=== PATIENT | female | born 1955 | race Caucasian/White ===

== ENCOUNTER 2019-04-13 17:08 | Inpatient (IN) ==
[2019-04-13] MEDS ORDERED: Ringers Solution, Lactated 1,000 ML ONE ×2 (19:38→23:31)
[2019-04-13] MEDS ORDERED: OXYCODONE Oral CONC 10 MG/0.5 ML ORAL.SYG SL STA (19:44)
[2019-04-13] MEDS ORDERED: *HR* Promethazine 25 MG/ML VIAL IVP PRN (19:52)
[2019-04-13] MEDS ORDERED: *HR* Labetalol 20 MG/4 ML SYRINGE IVP PRN (19:52)
[2019-04-13] MEDS ORDERED: Ondansetron 4 MG/2 ML VIAL IVP ONE (19:52)
[2019-04-13] MEDS ORDERED: *HR* OxyCODONE Immed Rel 5 MG TABLET PO PRN (19:52)
--- NOTE | 2019-04-13 19:53 | Anesthesia Evaluation PreOp ---
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: Denies Any Significant HX, Other (Rectal prolapse) Other Medical History: Denies Any Significant HX, Other (Obese) Anesthesia History: No Prior Anesthetic Complications, Past Anesthesia (GB, Colonoscopy x 3) : No Alcohol Use: none Drug use: none Medications and Allergies Allergy/AdvReac Type Severity Reaction Status Date / Time No Known Allergies Allergy Verified 04/13/19 19:28 - Meds/Allergy Pre-op Review Medications Reviewed: Yes Allergies Reviewed: Yes Beta Blockers on Current Med List: No Anesthesia Exam O2 Sat Height 1.63 m Weight 82.663 kg O2 Sat by Pulse Oximetry 98 Vital Signs Temp Pulse Resp BP Pulse Ox 98.1 F 90 15 193/80 98 04/13/19 19:10 04/13/19 19:10 04/13/19 19:10 04/13/19 19:10 04/13/19 19:10 NPO (# of Hours): > 8 hrs Pain Scale: 0 Pain Scale Used: Numeric (1 - 10) - HEENT Pupil (Motor): Pupils equal, EOMI Mallampati: I Teeth: Normal Oral Opening: Greater than 3 - TELEPHONE OPERATOR CHIEF LOC: Oriented TELEPHONE OPERATOR CHIEF Motor: Normal RUE, Normal LUE, Normal RLE, Normal LLE, Normal Face TELEPHONE OPERATOR CHIEF Sensory: Normal: RUE, LUE, RLE, LLE, Face - Cardiac Rhythm: Regular Murmur: None JVD: No Carotid Bruit: No - Pulmonary Breath Sounds: bilateral Clear Respiratory Effort: Symmetrical Anesthesia Assess/Plan ASA Score: 2, E Level of consciousness: Cooperative Anesthetic Plan: General Autologous Blood: Yes Monitoring Plan: A-Line
--- NOTE | 2019-04-13 19:53 | Acute Care Surgery H&P ---
Date of Encounter: 04/13/19 Time of Encounter: 19:51 Assessment and Plan (1) Rectal prolapse Current Visit: Yes Status: Acute The assessment and plan as outlined above was discussed with the patient and/or family members who expressed understanding and agreement. All questions were answered. I explained to the patient and family member that due to the degree of the rectal prolapse and her pain we definitely need to proceed with exploration and low anterior resection. It is highly probable that I will need to create a colostomy do to the acute setting and the fact that she has unprepped bowel. Risk and benefits discussed with the patient and family member and they agree with the above-mentioned plan. History of Present Illness Chief complaint: Rectal prolapse HPI: Ms. BALBUENA is a 64 year old female with no significant past medical history who states that today while trying to have a bowel movement she felt a pop and had severe pain with evidence of prolapse. She states that she is had previous history of a rectal prolapse in March of last year but not to this extent. She does not have any history diarrhea but admits to constipation. She takes MiraLAX and Colace regularly. She denies any rectal bleeding and because of the severe perianal pain and protrusion from the anal area she presented himself to [facility] and was subsequently transferred to [facility] for evaluation. Past Med Surg Social Fam HX - Past Surgical History Surgical History: cholecystectomy Medications and Allergies Allergy/AdvReac Type Severity Reaction Status Date / Time No Known Allergies Allergy Verified 04/13/19 19:28 Review of Systems All systems PM: reviewed and no additional remarkable complaints except as stated All systems PM: The remainder of the systems were reviewed and are negative General Surgery Exam Initial Vital Signs Temp Pulse Resp BP Pulse Ox 98.1 F 90 15 193/80 98 04/13/19 19:10 04/13/19 19:10 04/13/19 19:10 04/13/19 19:10 04/13/19 19:10 - General physical appearance moderate distress - Eyes PERRL, normal ocular movement - Respiratory normal expansion, normal respiratory effort, clear to auscultation - Cardiovascular Cardiovascular exam: Present: RRR, no murmurs/rubs/gallops - Abdomen Abdomen general surgery: Present: bowel sounds present, soft, tender (Tenderness noted in the lower abdominal region) - Rectum Rectum: Present: other (Rectal prolapse with maroon dusky appearing rectum extending for length of approximately 15-20 cm from the anus. Edematous.) - Neurologic Present: CN 2-12 grossly intact - Musculoskeletal Present: other (no clubbing cyanosis, or edema) - Psychiatric Psychiatric general surgery: Present: A&Ox3, appropriate, oriented to person, oriented to place, oriented to time Results - Labs All other labs normal.
[2019-04-13] MEDS ORDERED: *HR* FentaNYL (PF) 100 MCG/2 ML VIAL ONE (19:55)
[2019-04-13] MEDS ORDERED: *HR* Propofol 200 MG/20 ML VIAL IVP ONE (19:55)
[2019-04-13] MEDS ORDERED: Ondansetron 4 MG/2 ML VIAL ONE (19:59)
[2019-04-13] MEDS ORDERED: *HR* Rocuronium Bromide 50 MG/5 ML VIAL ONE (19:59)
[2019-04-13] MEDS ORDERED: *HR* Succinylcholine 200 MG/10 ML VIAL IVP ONE (19:59)
[2019-04-13] MEDS ORDERED: Lidocaine -MPF 2% 2 ML VIAL ONE (19:59)
[2019-04-13] MEDS ORDERED: Dexamethasone 4 MG/ML VIAL ONE (19:59)
[2019-04-13] MEDS ORDERED: CefOXitin 1,000 MG VIAL ONE (20:16)
[2019-04-13] MEDS ORDERED: CefOXitin 2,000 MG VIAL ONE (21:06)
[2019-04-13] MEDS ORDERED: Ketorolac 30 MG/ML VIAL ONE (22:22)
--- NOTE | 2019-04-13 22:58 | Operative Note ---
Date of procedure: 04/13/19 Pre-op diagnosis: Rectal prolapse Post-op diagnosis: same Procedure: 1. Exploratory celiotomy. 2. Low anterior resection with colostomy. Anesthesia: STEPHANIEA Surgeon: Felipe Vega Was there an personalized living assistant present: No First Line Production Supervisor Other: CHARLEE Peña Estimated blood loss (cc): 45 Specimen: sigmoid colon Condition: stable Disposition: PACU Procedure in Detail: Date of surgery: 04/13/19 After properly identifying the patient, the patient was brought to the operating room and placed in the supine position. After proper IV sedation was achieved followed by general endotracheal intubation, the legs were placed in a high lithotomy position and the anus was examined. A timeout was performed noting the patient's name and type of procedure to be performed. The mucosa of the prolapsed rectum appeared to be considerably edematous and hyperemic and in some areas ecchymosis and ischemia were present. The prolapsed portion extended for length of approximately greater than 25 cm. An attempt at reduction of this prolapse was tried without success. Given this large prolapse the decision was made to go ahead and proceed with a exploratory celiotomy. The patient's legs were placed in a low lithotomy position and the abdomen was prepped and draped in a normal sterile fashion. A 15 blade scalpel was used to make a an incision just above the level of the umbilicus extending along the midline inferiorly towards the pubic symphysis. Bovie cauterization was used to dissect the subcutaneous tissue and abdominal fascia until the abdomen was entered. A Bookwalter was brought onto the operative field to retract the abdominal wall laterally. The small bowel was retracted superiorly to allow for identification of the sigmoid colon. The sigmoid colon did appear to be redundant and grasping of the sigmoid colon and gentle traction allowed for eventual slow reduction of the rectal prolapse. The length of the reduction was greater than 25 cm, showing that the patient had an extremely redundant portion of the sigmoid colon with a lot of edema surrounding the area of the sigmoid colon that was prolapsed. The decision was made to go ahead and perform a sigmoid resection by first scoring the peritoneum to the right left of the sigmoid colon and using a handheld LigaSure to dissect between the mesentery until the presacral prominence could be identified. The presacral space was essentially without any type of adhesion and abundant edema which was suctioned. The sidewall down to the presacral space into the pelvis was dissected with Bovie cauterization. The peritoneum was then scored anteriorly overlying the position of the rectum. A contour stapler was then used to transect across the thickened portion of the rectum. Visualization showed that the staple line was not completely intact; i.e., ther was a failure of the stapling device. The open lumen of the rectal stump was grasped with nontraumatic grasper and the minor spillage of stool contents was immediately suctioned. The rectal mucosa was then approximated with Allis clamps and a contour stapler was once again applied across this area to complete the staple line which was identified and noted. Bovie cauterization and usage of a handheld LigaSure was then used to dissect across the mesentery up towards the descending colon. The portion of the descending colon as it traversed through the proximal portion of the sigmoid colon was further identified. This portion of the bowel was dissected off the lateral sidewall and transected with a SARAH stapler. The intervening mesentery was then transected with a handheld LigaSure and the segment of the colon was then submitted to pathology. The pelvis was copiously irrigated with normal saline solution containing Mefoxin. The rectal stump staple line was tagged with a 2-0 Prolene suture and the decision was then made to examined the abdominal wall for eventual creation of his colostomy. The left upper quadrant along the anterior clavicular line the epidermis was grasped with an Allis clamp and transected horizontally with a 10 blade scalpel. Bovie cauterization was used to dissected the subcutaneous to tissue to the rectus fascia was encountered. The tear sheath was scored with Bovie cauterization and the rectus abdominous muscle was split with a Brittany clamp until the posterior sheath was encountered and incised. The descending colonic stump was then extruded through this opening and tagged with a [place]. The decision was then made to close the midline incision by first placing Seprafilm within the abdomen and closing the fascia with a running #1 looped PDS suture 2. The subcutaneous tissue was reapproximated with a combination of oh and #1 Vicryl sutures and the epidermal and dermal layers were reapproximated with davy. The colostomy was then matured by transection across the staple line with Bovie cauterization and maturation with interrupted 3-0 Vicryl sutures. Kamaljit sponge, and instrument counts were correct 2 and the midline incision was covered with 4 x 4 gauze while the colostomy was covered with a colostomy appliance. The patient was aroused from IV sedation, extubated in the operating room without complication, and transported to the recovery room in stable condition.
[2019-04-13] MEDS: *HR* HYDROmorphone (PF) 1 MG/ML SYRINGE IVP PRN ×2 (23:33→23:47)
--- NOTE | 2019-04-14 00:01 | Anesthesia Evaluation Post Op ---
Date of Encounter: 04/14/19 Time of Encounter: 00:00 - Vital Signs Vital Signs: Vital Signs/O2 Sat, Most Current Temp Pulse Resp BP Pulse Ox 98.1 F 102 16 160/75 94 04/13/19 23:55 04/13/19 23:55 04/13/19 23:55 04/13/19 23:55 04/13/19 23:55 - Lungs Lungs: Clear Ascult./Percussion - Airway Airway: Non-obstructed - Cardiovascular Regular Rate - Mental Status Mental Status: Alert & Oriented, Answers Appropriately - Pain Pain Scale: 5 Pain Scale used: Numeric (1 - 10) - Nausea Vomiting Nausea Vomiting: Not Present - Hydration Hydration: Ice chips, Rios catheter - Discharge PostOp Status: Transfer Patient to floor
[2019-04-14] MEDS ORDERED: Naloxone 0.4 MG/ML INJ IVP PRN (00:08)
[2019-04-14] MEDS: Acetaminophen IV 1,000 MG/100 ML INFUS..BTL IVPB SCH ×5 (01:08→23:55)
[2019-04-14] MEDS: 0.9 % Sodium Chloride 1,000 ML IVC SCH ×3 (01:09→21:45)
[2019-04-14] MEDS: Ketorolac 30 MG/ML VIAL IVP SCH ×5 (01:09→23:55)
[2019-04-14 01:18] LABS: Basophils % 0.2 %; Hemoglobin 12.6 g/dL (11.5-15.4); Immature Granulocytes % 0.5 % (0-4); Lymphocytes # 0.8 K/mcL (0.6-4.6); Lymphocytes % 4.5 %; Mean Corpuscular HGB Conc 32.3 g/dL (31.6-35.5); Mean Corpuscular Hemoglobin 30.5 pg (28.0-33.3); Mean Corpuscular Volume 94.4 fL (83.0-100.0); Mean Platelet Volume 9.8 fL (9.4-12.4); Monocytes # 0.6 K/mcL (0.0-1.3); Monocytes % 3.3 %; Neutrophils # 15.6 K/mcL (1.6-8.9); Platelet Count 273 K/mcL (140-400); Red Blood Count 4.13 M/mcL (3.82-4.97); Red Cell Distribution Width 12.7 % (11.5-14.5); Segmented Neutrophils % 91.5 %
[2019-04-14 01:39] LABS: BUN/Creatinine Ratio 24 (6-26); Blood Urea Nitrogen 19 mg/dL (8-23); Calcium 7.9 mg/dL (8.6-10.3); Carbon Dioxide 21 mEq/L (23-29); Chloride 107 mEq/L (98-107); Glucose 186 mg/dL (70-105); Osmolality,Calculated 291 (280-300); Sodium 137 mEq/L (136-145); eGFR For Non-African Americans > 60 (> 60)
[2019-04-14] MEDS: cefOXitin 1,000 MG in Water for inj. (sterile) 20 ML 10 ML IVP SCH ×3 (04:34→19:48)
[2019-04-14] MEDS: Pantoprazole 40 MG VIAL IVP SCH (05:52)
--- NOTE | 2019-04-14 11:01 | AcuteCareSurgery Progress Note ---
<Kym Saleh N - Last Filed: 04/14/19 13:57> Date of Encounter: 04/14/19 Time of Encounter: 10:59 - Assessment and Plan (1) Rectal prolapse Current Visit: Yes Status: Acute 64-year-old female admitted on hospital for rectal prolapse extending 15-20 cm from the anus. She is POD #1 from exploratory celiotomy and low anterior resection with colostomy. -Patient reports improvement in her abdominal pain -Surgical site without erythema or discharge -Colostomy in place, stoma is pink and there is condensation within the bag. No gas or output noted. -Plan to remove hannon tomorrow -Continue pain management Subjective Narrative: Patient seen and examined at bedside this morning with family member present. Patient reports improvement in her pain. Her colostomy is in place, stoma is pink and there is condensation in the bag. She does have leukocytosis, but her vitals are stable. Objective Vital Signs - Last 8 Hours Temp Pulse Resp BP Pulse Ox 04/14/19 10:30 98.6 F 79 14 143/77 97 04/14/19 10:21 97 04/14/19 04:31 98.3 F 82 14 136/74 98 04/14/19 03:08 98.5 F 80 16 116/71 98 Intake and Output 04/13/19 04/14/19 04/14/19 23:59 07:59 15:59 Intake Total 370 / 1074 704 / 1074 Output Total 445 / 445 0 / 600 600 / 600 Balance -445 / -445 370 / 474 104 / 474 Intake: IV Fluids 310 / 1014 704 / 1014 Lactated Ringers 1,000 ML @ 0 100 / 100 mls/hr .ROUTE .STK-MED ONE Rx#: [id number] 0.9 % Sodium Chloride 1,000 ML 704 / 704 @ 100 mls/hr IVC .Q10H [facility] Rx#: [id number] Mefoxin 1,000 MG In Water for inj. (sterile) 10 ML @ 300 mls/ hr IVP Q8H [facility] Rx#:[id number] Ofirmev 1,000 mg/100 ml 1,000 200 / 200 mg In 100 ml @ 400 mls/hr IVPB Q6HR [facility] Rx#:[id number] Oral 60 / 60 0 / 60 Output: Estimated Blood Loss 45 / 45 Urine Amount (Catheter) 400 / 400 Catheter 0 / 600 600 / 600 Other: # Bowel Movements 0 Weight 82.663 kg Blood Glucose* 125 - General physical appearance well developed, well nourished - Eyes PERRL, normal ocular movement - ENT normal pinna, normal nares - Neck Neck exam: trachea midline, no venous distension - Respiratory normal expansion, normal respiratory effort - Cardiovascular Cardiovascular exam: Present: RRR - Abdomen Additional Comments: Appropriate postsurgical tenderness. There is a midline surgical incision without surrounding erythema or discharge. Her colostomy is in place, stoma is pink and there is condensation in the bag. - Incision Incision: Present: clean and dry, approximated - Labs 04/14/19 00:41 04/14/19 00:41 Diabetes panel 04/14/19 Range/Units 00:41 Sodium 137 (136-145) mEq/L Potassium 4.0 (3.5-5.1) mEq/L Chloride 107 (98-107) mEq/L Carbon Dioxide 21 L (23-29) mEq/L BUN 19 (8-23) mg/dL Creatinine 0.78 (0.60-1.20) mg/dL Glucose 186 H (70-105) mg/dL Calcium 7.9 L (8.6-10.3) mg/dL Calcium panel 04/14/19 Range/Units 00:41 Calcium 7.9 L (8.6-10.3) mg/dL Pituitary panel 04/14/19 Range/Units 00:41 Sodium 137 (136-145) mEq/L Potassium 4.0 (3.5-5.1) mEq/L Chloride 107 (98-107) mEq/L Carbon Dioxide 21 L (23-29) mEq/L BUN 19 (8-23) mg/dL Creatinine 0.78 (0.60-1.20) mg/dL Glucose 186 H (70-105) mg/dL Calcium 7.9 L (8.6-10.3) mg/dL Adrenal panel 04/14/19 Range/Units 00:41 Sodium 137 (136-145) mEq/L Potassium 4.0 (3.5-5.1) mEq/L Chloride 107 (98-107) mEq/L Carbon Dioxide 21 L (23-29) mEq/L BUN 19 (8-23) mg/dL Creatinine 0.78 (0.60-1.20) mg/dL Glucose 186 H (70-105) mg/dL Calcium 7.9 L (8.6-10.3) mg/dL Consult Discharge Plan - Plan Referrals: NONE,PCP [Primary Care Provider] - <GaryFelipe Nicole - Last Filed: 04/14/19 18:15> Date of Encounter: 04/14/19 - Assessment and Plan (1) Rectal prolapse Current Visit: Yes Status: Acute Objective Vital Signs - Last 8 Hours Temp Pulse Resp BP Pulse Ox 04/14/19 14:40 98.2 F 73 14 128/73 96 04/14/19 10:30 98.6 F 79 14 143/77 97 04/14/19 10:21 97 Intake and Output 04/14/19 04/14/19 04/14/19 07:59 15:59 23:59 Intake Total 370 / 1680 1140 / 1680 170 / 1680 Output Total 0 / 900 900 / 900 Balance 370 / 780 240 / 780 170 / 780 Intake: IV Fluids 310 / 1520 1110 / 1520 100 / 1520 Lactated Ringers 1,000 ML @ 0 100 / 100 mls/hr .ROUTE .STK-MED ONE Rx#: [id number] 0.9 % Sodium Chloride 1,000 ML 1000 / 1000 @ 100 mls/hr IVC .Q10H [facility] Rx#: [id number] Mefoxin 1,000 MG In Water for inj. (sterile) 10 ML @ 300 mls/ hr IVP Q8H [facility] Rx#:[id number] Ofirmev 1,000 mg/100 ml 1,000 200 / 400 100 / 400 100 / 400 mg In 100 ml @ 400 mls/hr IVPB Q6HR [facility] Rx#:[id number] Oral 60 / 160 30 / 160 70 / 160 Output: Stool 0 / 0 Catheter 0 / 900 900 / 900 Other: Meal 1/4 cup ice chips pop cycle # Bowel Movements 0 Blood Glucose* 125 102 135 - Labs 04/14/19 00:41 04/14/19 00:41 Diabetes panel 04/14/19 Range/Units 00:41 Sodium 137 (136-145) mEq/L Potassium 4.0 (3.5-5.1) mEq/L Chloride 107 (98-107) mEq/L Carbon Dioxide 21 L (23-29) mEq/L BUN 19 (8-23) mg/dL Creatinine 0.78 (0.60-1.20) mg/dL Glucose 186 H (70-105) mg/dL Calcium 7.9 L (8.6-10.3) mg/dL Calcium panel 04/14/19 Range/Units 00:41 Calcium 7.9 L (8.6-10.3) mg/dL Pituitary panel 04/14/19 Range/Units 00:41 Sodium 137 (136-145) mEq/L Potassium 4.0 (3.5-5.1) mEq/L Chloride 107 (98-107) mEq/L Carbon Dioxide 21 L (23-29) mEq/L BUN 19 (8-23) mg/dL Creatinine 0.78 (0.60-1.20) mg/dL Glucose 186 H (70-105) mg/dL Calcium 7.9 L (8.6-10.3) mg/dL Adrenal panel 04/14/19 Range/Units 00:41 Sodium 137 (136-145) mEq/L Potassium 4.0 (3.5-5.1) mEq/L Chloride 107 (98-107) mEq/L Carbon Dioxide 21 L (23-29) mEq/L BUN 19 (8-23) mg/dL Creatinine 0.78 (0.60-1.20) mg/dL Glucose 186 H (70-105) mg/dL Calcium 7.9 L (8.6-10.3) mg/dL - Attending Attestation I examined this patient and my medical decision-making was reviewed with the Resident Physician. I agree with the documented findings, disposition and treatment plan as described except to the extent set forth below. I reviewed the above assessment and evaluation agree with the above plan. Patient has some abdominal pain symptoms however she was just recently given pain medication and states that she started to feel more comfortable. Dressing is clean dry and intact. Patient denies any nausea or vomiting. We will keep the Hannon catheter for accurate I's and O's and consider removal tomorrow. We will encourage more activity and will consult PT and OT tomorrow. We will also consult social work tomorrow and start ostomy education. Await return of bowel function.
[2019-04-14] MEDS: MORPHINE SUL Oral CONC 10 MG/0.5 ML ORAL.SYG SL PRN (12:51)
[2019-04-14] MEDS: *HR* Heparin 5,000 UNIT/ML VIAL SQ SCH (23:55)
[2019-04-15 04:32] LABS: Basophils % 0.2 %; Eosinophils # 0.1 K/mcL (0.0-0.6); Eosinophils % 0.7 %; Hematocrit 32.6 % (35.3-44.9); Immature Granulocytes % 0.2 % (0-4); Lymphocytes # 1.8 K/mcL (0.6-4.6); Lymphocytes % 13.9 %; Mean Corpuscular HGB Conc 32.2 g/dL (31.6-35.5); Mean Corpuscular Volume 96.2 fL (83.0-100.0); Mean Platelet Volume 9.3 fL (9.4-12.4); Monocytes # 0.8 K/mcL (0.0-1.3); Monocytes % 6.5 %; Neutrophils # 9.9 K/mcL (1.6-8.9); Platelet Count 208 K/mcL (140-400); Red Blood Count 3.39 M/mcL (3.82-4.97); Red Cell Distribution Width 13.2 % (11.5-14.5); Segmented Neutrophils % 78.5 %
[2019-04-15 04:34] LABS: Hemoglobin 10.5 g/dL (11.5-15.4)
[2019-04-15 04:50] LABS: Alanine Aminotransferase 56 Units/L (7-52); Albumin 2.7 g/dL (3.5-5.7); Alkaline Phosphatase 69 Units/L (34-104); Aspartate Amino Transferase 48 Units/L (13-39); BUN/Creatinine Ratio 17 (6-26); Bilirubin,Total 0.5 mg/dL (0.3-1.0); Blood Urea Nitrogen 12 mg/dL (8-23); Calcium 7.7 mg/dL (8.6-10.3); Carbon Dioxide 24 mEq/L (23-29); Chloride 111 mEq/L (98-107); Globulin 2.7 g/dL (2.4-3.5); Glucose 93 mg/dL (70-105); Osmolality,Calculated 289 (280-300); Potassium 3.9 mEq/L (3.5-5.1); Sodium 140 mEq/L (136-145); Total Protein 5.4 g/dL (6.4-8.9); eGFR For Non-African Americans > 60 (> 60)
[2019-04-15] MEDS: Ketorolac 30 MG/ML VIAL IVP SCH ×3 (05:39→17:50)
[2019-04-15] MEDS: Pantoprazole 40 MG VIAL IVP SCH (05:39)
[2019-04-15] MEDS: cefOXitin 1,000 MG in Water for inj. (sterile) 20 ML 10 ML IVP SCH ×3 (05:39→20:51)
[2019-04-15] MEDS: Acetaminophen IV 1,000 MG/100 ML INFUS..BTL IVPB SCH ×3 (05:40→17:54)
[2019-04-15] MEDS: *HR* Heparin 5,000 UNIT/ML VIAL SQ SCH ×2 (05:40→17:50)
--- NOTE | 2019-04-15 08:44 | AcuteCareSurgery Progress Note ---
<ThereseKym N - Last Filed: 04/15/19 08:41> Date of Encounter: 04/15/19 Time of Encounter: 08:41 - Assessment and Plan (1) Rectal prolapse Current Visit: Yes Status: Acute 64-year-old female admitted on hospital for rectal prolapse extending 15-20 cm from the anus. She is POD #2 from exploratory celiotomy and low anterior resection with colostomy. -Patient reports improvement in her abdominal pain -Surgical site without erythema or discharge -Colostomy in place, stoma is pink and there is condensation and gas present in the bag -Remove Rios today -Continue pain management -We will advance diet to clear liquids -PT and OT consults placed Subjective Narrative: Patient seen and examined at bedside with acute care surgery team. She has evidence of gas in her colostomy bag. There is condensation and the stoma is pink and well appearing. No colostomy output. No nausea or vomiting. Objective Vital Signs - Last 8 Hours Temp Pulse Resp BP Pulse Ox 04/15/19 03:44 98.3 F 73 14 141/78 97 Intake and Output 04/14/19 04/15/19 04/15/19 23:59 07:59 15:59 Intake Total 1180 / 2690 210 / 210 Output Total 400 / 1300 500 / 500 Balance 780 / 1390 -290 / -290 Intake: IV Fluids 1110 / 2530 210 / 210 0.9 % Sodium Chloride 1,000 ML 1000 / 2000 @ 100 mls/hr IVC .Q10H [facility] Rx#: [id number] Mefoxin 1,000 MG In Water for 10 10 inj. (sterile) 10 ML @ 300 mls/ hr IVP Q8H [facility] Rx#:[id number] Ofirmev 1,000 mg/100 ml 1,000 100 / 400 200 / 200 mg In 100 ml @ 400 mls/hr IVPB Q6HR [facility] Rx#:[id number] Oral 70 / 160 Output: Urine 400 / 400 Catheter 500 / 500 Other: Meal DINNER NPO Percent of Meal Consumed 0% Blood Glucose* 93 82 - General physical appearance well developed, well nourished - Eyes PERRL, normal ocular movement - ENT normal pinna, normal nares - Neck Neck exam: trachea midline, no venous distension - Respiratory normal expansion, normal respiratory effort - Cardiovascular Cardiovascular exam: Present: RRR - Abdomen Additional Comments: Colostomy in the left lower quadrant, stomas pain, condensation present, gas present in the bag. No stool output. Surgical incision is clean and dry and approximated. - Labs 04/15/19 04:05 04/15/19 04:05 Diabetes panel 04/15/19 Range/Units 04:05 Sodium 140 (136-145) mEq/L Potassium 3.9 (3.5-5.1) mEq/L Chloride 111 H (98-107) mEq/L Carbon Dioxide 24 (23-29) mEq/L BUN 12 (8-23) mg/dL Creatinine 0.71 (0.60-1.20) mg/dL Glucose 93 (70-105) mg/dL Calcium 7.7 L (8.6-10.3) mg/dL AST 48 H (13-39) Units/L ALT 56 H (7-52) Units/L Alkaline Phosphatase 69 (34-104) Units/L Albumin 2.7 L (3.5-5.7) g/dL Calcium panel 04/15/19 Range/Units 04:05 Calcium 7.7 L (8.6-10.3) mg/dL Albumin 2.7 L (3.5-5.7) g/dL Pituitary panel 04/15/19 Range/Units 04:05 Sodium 140 (136-145) mEq/L Potassium 3.9 (3.5-5.1) mEq/L Chloride 111 H (98-107) mEq/L Carbon Dioxide 24 (23-29) mEq/L BUN 12 (8-23) mg/dL Creatinine 0.71 (0.60-1.20) mg/dL Glucose 93 (70-105) mg/dL Calcium 7.7 L (8.6-10.3) mg/dL Adrenal panel 04/15/19 Range/Units 04:05 Sodium 140 (136-145) mEq/L Potassium 3.9 (3.5-5.1) mEq/L Chloride 111 H (98-107) mEq/L Carbon Dioxide 24 (23-29) mEq/L BUN 12 (8-23) mg/dL Creatinine 0.71 (0.60-1.20) mg/dL Glucose 93 (70-105) mg/dL Calcium 7.7 L (8.6-10.3) mg/dL Total Bilirubin 0.5 (0.3-1.0) mg/dL AST 48 H (13-39) Units/L ALT 56 H (7-52) Units/L Alkaline Phosphatase 69 (34-104) Units/L Albumin 2.7 L (3.5-5.7) g/dL - VTE Documentation of Mechanical Device: Intermittent pneumatic compression device Consult Discharge Plan - Plan Referrals: NONE,PCP [Primary Care Provider] - <Fatoumata Lynnn Renetta - Last Filed: 04/15/19 15:18> Date of Encounter: 04/15/19 Objective Vital Signs - Last 8 Hours Temp Pulse Resp BP Pulse Ox 04/15/19 12:41 98.9 F 71 16 162/84 93 Intake and Output 04/14/19 04/15/19 04/15/19 23:59 07:59 15:59 Intake Total 1180 / 2690 1210 / 1440 230 / 1440 Output Total 400 / 1300 500 / 500 Balance 780 / 1390 710 / 940 230 / 940 Intake: IV Fluids 1110 / 2530 1210 / 1320 110 / 1320 0.9 % Sodium Chloride 1,000 ML 1000 / 2000 1000 / 1000 @ 100 mls/hr IVC .Q10H [facility] Rx#: [id number] Mefoxin 1,000 MG In Water for inj. (sterile) 10 ML @ 300 mls/ hr IVP Q8H [facility] Rx#:[id number] Ofirmev 1,000 mg/100 ml 1,000 100 / 400 200 / 300 100 / 300 mg In 100 ml @ 400 mls/hr IVPB Q6HR [facility] Rx#:[id number] Oral 70 / 160 120 / 120 Output: Urine 400 / 400 Catheter 500 / 500 Other: Meal DINNER NPO Percent of Meal Consumed 0% # Voids 1 Blood Glucose* 93 82 - Labs 04/15/19 04:05 04/15/19 04:05 Diabetes panel 04/15/19 Range/Units 04:05 Sodium 140 (136-145) mEq/L Potassium 3.9 (3.5-5.1) mEq/L Chloride 111 H (98-107) mEq/L Carbon Dioxide 24 (23-29) mEq/L BUN 12 (8-23) mg/dL Creatinine 0.71 (0.60-1.20) mg/dL Glucose 93 (70-105) mg/dL Calcium 7.7 L (8.6-10.3) mg/dL AST 48 H (13-39) Units/L ALT 56 H (7-52) Units/L Alkaline Phosphatase 69 (34-104) Units/L Albumin 2.7 L (3.5-5.7) g/dL Calcium panel 04/15/19 Range/Units 04:05 Calcium 7.7 L (8.6-10.3) mg/dL Albumin 2.7 L (3.5-5.7) g/dL Pituitary panel 04/15/19 Range/Units 04:05 Sodium 140 (136-145) mEq/L Potassium 3.9 (3.5-5.1) mEq/L Chloride 111 H (98-107) mEq/L Carbon Dioxide 24 (23-29) mEq/L BUN 12 (8-23) mg/dL Creatinine 0.71 (0.60-1.20) mg/dL Glucose 93 (70-105) mg/dL Calcium 7.7 L (8.6-10.3) mg/dL Adrenal panel 04/15/19 Range/Units 04:05 Sodium 140 (136-145) mEq/L Potassium 3.9 (3.5-5.1) mEq/L Chloride 111 H (98-107) mEq/L Carbon Dioxide 24 (23-29) mEq/L BUN 12 (8-23) mg/dL Creatinine 0.71 (0.60-1.20) mg/dL Glucose 93 (70-105) mg/dL Calcium 7.7 L (8.6-10.3) mg/dL Total Bilirubin 0.5 (0.3-1.0) mg/dL AST 48 H (13-39) Units/L ALT 56 H (7-52) Units/L Alkaline Phosphatase 69 (34-104) Units/L Albumin 2.7 L (3.5-5.7) g/dL - Attending Attestation I examined this patient and my medical decision-making was reviewed with the Re sident Physician. I agree with the documented findings, disposition and treatment plan as described except to the extent set forth below. The patient is seen and evaluated on morning rounds with the acute care surgery team. She is feeling very well and her ostomy is pink. She is having very little pain. We will continue postoperative care for Ervin's procedure after nonreducible acute rectal prolapse. Advance diet. Refugio Lynn MD FACS
[2019-04-15] MEDS: 0.9 % Sodium Chloride 1,000 ML IVC SCH ×2 (09:34→17:53)
[2019-04-15] MEDS: MORPHINE SUL Oral CONC 10 MG/0.5 ML ORAL.SYG SL PRN (09:56)
[2019-04-16] MEDS: Ketorolac 30 MG/ML VIAL IVP SCH ×4 (00:32→17:43)
[2019-04-16] MEDS: Acetaminophen IV 1,000 MG/100 ML INFUS..BTL IVPB SCH ×2 (00:33→05:49)
[2019-04-16] MEDS: 0.9 % Sodium Chloride 1,000 ML IVC SCH (03:57)
[2019-04-16] MEDS: cefOXitin 1,000 MG in Water for inj. (sterile) 20 ML 10 ML IVP SCH ×3 (03:58→20:39)
[2019-04-16] MEDS: *HR* Heparin 5,000 UNIT/ML VIAL SQ SCH ×2 (05:48→17:43)
[2019-04-16] MEDS: Pantoprazole 40 MG VIAL IVP SCH (05:48)
--- NOTE | 2019-04-16 08:11 | AcuteCareSurgery Progress Note ---
<Kym Saleh N - Last Filed: 04/16/19 08:08> Date of Encounter: 04/16/19 Time of Encounter: 08:09 - Assessment and Plan (1) Rectal prolapse Current Visit: Yes Status: Acute 64-year-old female admitted on hospital for rectal prolapse extending 15-20 cm from the anus. She is POD #3. -Patient reports improvement in her abdominal pain -Surgical site without erythema or discharge -Colostomy in place, stoma is pink and there is condensation and gas present in the bag -Continue pain management -We will advance diet to full liquids -PT and OT consults placed Subjective Narrative: Patient seen and examined at bedside this morning. She denies any complaints. Reports passing gas into her colostomy bag. No stool output in colostomy bag. She tolerated her clear liquid diet without difficulty. Objective Vital Signs - Last 8 Hours Temp Pulse Resp BP Pulse Ox 04/16/19 07:07 98.2 F 75 15 169/87 95 04/16/19 04:24 98.2 F 73 15 184/82 96 04/16/19 00:26 98.2 F 84 16 171/83 95 Intake and Output 04/15/19 04/16/19 04/16/19 23:59 07:59 15:59 Intake Total 1590 / 3030 1410 / 1410 Output Total 300 / 800 0 / 0 Balance 1290 / 2230 1410 / 1410 Intake: IV Fluids 1110 / 2430 1210 / 1210 0.9 % Sodium Chloride 1,000 ML 1000 / 2000 1000 / 1000 @ 100 mls/hr IVC .Q10H [facility] Rx#: [id number] Mefoxin 1,000 MG In Water for 10 10 inj. (sterile) 10 ML @ 300 mls/ hr IVP Q8H [facility] Rx#:[id number] Ofirmev 1,000 mg/100 ml 1,000 100 / 400 200 / 200 mg In 100 ml @ 400 mls/hr IVPB Q6HR [facility] Rx#:[id number] Oral 480 / 600 200 / 200 Output: Urine 300 / 300 0 / 0 Stool 0 / 0 Other: # Voids 1 Weight 83.2 kg Patient Weight 04/16/19 23:59 Weight 83.2 kg - General physical appearance well developed, well nourished - Eyes PERRL, normal ocular movement - ENT normal pinna, normal nares - Neck Neck exam: trachea midline, no venous distension - Respiratory normal expansion, normal respiratory effort - Cardiovascular Cardiovascular exam: Present: RRR - Abdomen Abdomen: Present: soft, non tender Additional Comments: Colostomy left lower quadrant is well seated, stoma is pink and healthy, gas in colostomy bag - Labs 04/15/19 04:05 04/15/19 04:05 - VTE Documentation of Mechanical Device: Intermittent pneumatic compression device Consult Discharge Plan - Plan Instructions: Colostomy Care (DC), Colectomy (DC), Colostomy Creation (DC) Additional Instructions: General Surgical Discharge Instructions 1. No pushing, pulling, or lifting greater than 15 lbs for 6 weeks. 2. You may shower beginning today, but no tub baths, soaking, or swimming for 2 weeks. 3. You may resume driving when you are off narcotics and are safe to react in a car. 4. Take ibuprofen every 8 hours for discomfort. If this does not relieve discomfort, you may take the as needed Percocet. A. Take narcotics as directed. B. Do not take more narcotics then directed and do not share your narcotics with any other person. C. Do not drink alcohol while on narcotics. D. Eat something prior to taking narcotics and you may also take the Zofran if it upsets your stomach. 5. Take stool softeners (Colace) wice daily everyday. Take Miralax daily if your stool in the colostomy is firm. Take both daily while taking narcotics. You may hold for loose stools. 6. Report any fevers greater than 100.5F, increase abdominal discomfort, drainage that looks like pus, increased redness or pain at the surgical site, or any vomiting. 7. Report any pain in the calves, shortness of breath, or rapid heartbeat. 8. Follow-up in the office as directed. 9. If you were prescribed antibiotics, do not stop them without talking to your provider. 10. Follow the new colostomy diet. This will help to reduce gas and help prevent constipation or blockage of the ostomy. Referrals: Felipe Vega MD [Partnered Physician] - 06/10/19 1:35 pm Maribel Pena BAND MASTER [Advanced Practice Nurse] - 05/03/19 10:30 am NONE,PCP [Primary Care Provider] - Prescriptions: Docusate Sodium [Colace] 100 mg PO BID PRN #60 capsule PRN Reason: Constipation Ibuprofen 800 mg PO Q8H PRN #42 tablet PRN Reason: Mild Pain Polyethylene Glycol 3350 [MiraLAX Powder Bulk 17.9 Oz] 1 scoop PO DAILY 30 Days #510 gm OxyCODONE/APAP 5/325 [Percocet 5/325 MG] 1 each PO Q6HR PRN 7 Days #28 tablet PRN Reason: Pain Ondansetron ODT [Zofran ODT] 4 mg SL Q4HR PRN #30 tab.rapdis PRN Reason: Nausea <Armani Snell F - Last Filed: 04/16/19 11:08> Date of Encounter: 04/16/19 Objective Vital Signs - Last 8 Hours Temp Pulse Resp BP Pulse Ox 04/16/19 10:03 98.2 F 78 15 165/91 98 04/16/19 07:07 98.2 F 75 15 169/87 95 04/16/19 04:24 98.2 F 73 15 184/82 96 Intake and Output 04/15/19 04/16/19 04/16/19 23:59 07:59 15:59 Intake Total 1590 / 3030 1409 Output Total 300 / 800 0 / 0 0 / 0 Balance 1290 / 2230 1409 Intake: IV Fluids 1110 / 2430 1210 / 1210 0.9 % Sodium Chloride 1,000 ML 1000 / 2000 1000 / 1000 @ 100 mls/hr IVC .Q10H [facility] Rx#: [id number] Mefoxin 1,000 MG In Water for inj. (sterile) 10 ML @ 300 mls/ hr IVP Q8H [facility] Rx#:[id number] Ofirmev 1,000 mg/100 ml 1,000 100 / 400 200 / 200 mg In 100 ml @ 400 mls/hr IVPB Q6HR [facility] Rx#:[id number] Oral 480 / 600 200 / 800 600 / 800 Output: Urine 300 / 300 0 / 0 0 / 0 Stool 0 / 0 Other: Meal Breakfast Percent of Meal Consumed 100% # Voids 1 Weight 83.2 kg Patient Weight 04/16/19 23:59 Weight 83.2 kg - Labs 04/15/19 04:05 04/15/19 04:05 - Attending Attestation I examined this patient and my medical decision-making was reviewed with the Resident Physician. I agree with the documented findings, disposition and treatment plan as described except to the extent set forth below.
[2019-04-16] MEDS ORDERED: Ondansetron ODT 4 MG TAB.RAPDIS SL PRN (08:50)
[2019-04-17] MEDS: Ketorolac 30 MG/ML VIAL IVP SCH (02:07)
[2019-04-17] MEDS: cefOXitin 1,000 MG in Water for inj. (sterile) 20 ML 10 ML IVP SCH ×3 (05:26→19:56)
[2019-04-17] MEDS: *HR* Heparin 5,000 UNIT/ML VIAL SQ SCH ×2 (07:28→16:58)
[2019-04-17] MEDS: Pantoprazole 40 MG VIAL IVP SCH (07:29)
[2019-04-17] MEDS: *HR* OxyCODONE/APAP 5/325 TABLET PO PRN (08:05)
--- NOTE | 2019-04-17 09:55 | AcuteCareSurgery Progress Note ---
<Kym Saleh N - Last Filed: 04/17/19 10:23> Date of Encounter: 04/17/19 Time of Encounter: 09:53 - Assessment and Plan (1) Rectal prolapse Current Visit: Yes Status: Acute 64-year-old female admitted on hospital for rectal prolapse extending 15-20 cm from the anus. She is POD #4 -Appropriate postsurgical tenderness at the surgical site -Colostomy in place, minimal amount of stool present in bag -Patient is tolerating her diet -Patient received colostomy education and supplies -We will advance to regular diet today -Patient is progressing appropriately from a surgical standpoint and we will plan for discharge tentatively tomorrow barring any complications (2) Hypertension Current Visit: Yes Status: Acute -Patient noted to have significantly elevated blood pressure since admission the hospital -Patient reports that she has been worked up for hypertension the past but never started on home medications -Called patient's primary care provider to notify them of patient's elevated blood pressure readings. Spoke with her HOME WEATHERIZING WORKER who will see the patient as a hospital follow-up and she is okay with us starting lisinopril 10 mg and discharging the patient home with that dosage. Patient will follow-up with her PCP for continued hypertension management. Qualifiers: Hypertension type: essential hypertension Qualified Code(s): I10 - Essential (primary) hypertension Subjective Narrative: Patient is POD #4 from Ervin's procedure for rectal prolapse. She is doing well and tolerating her diet. There is minimal amount of stool present in her colostomy. No nausea or vomiting. Patient has had significant elevated blood pressure readings since admission. Objective Vital Signs - Last 8 Hours Temp Pulse Resp BP Pulse Ox 04/17/19 07:00 98.6 F 92 18 183/84 97 04/17/19 02:30 99.3 F 93 16 173/81 95 Intake and Output 04/16/19 04/17/19 04/17/19 23:59 07:59 15:59 Intake Total 170 / 2670 200 / 210 10 210 Output Total 0 / 100 Balance 170 / 2570 200 / 210 10 / 210 Intake: IV Fluids 1229 10 / 10 Mefoxin 1,000 MG In Water for 10 inj. (sterile) 10 ML @ 300 mls/ hr IVP Q8H [facility] Rx#:[id number] Oral 160 / 1440 200 / 200 Output: Urine 0 / 0 Other: Meal Dinner Breakfast Percent of Meal Consumed 50% 10% # Voids 1 1 - General physical appearance well developed, well nourished - Eyes PERRL, normal ocular movement - ENT normal pinna, normal nares - Neck Neck exam: trachea midline, no venous distension - Respiratory normal expansion, normal respiratory effort - Cardiovascular Cardiovascular exam: Present: RRR - Abdomen Abdomen: Present: bowel sounds present, soft, non tender Additional Comments: Colostomy in the left lower quadrant - Labs 04/15/19 04:05 04/15/19 04:05 - VTE Documentation of Mechanical Device: Intermittent pneumatic compression device Consult Discharge Plan - Plan Instructions: Colostomy Care (DC), Colectomy (DC), Colostomy Creation (DC) Additional Instructions: General Surgical Discharge Instructions 1. No pushing, pulling, or lifting greater than 15 lbs for 6 weeks. 2. You may shower beginning today, but no tub baths, soaking, or swimming for 2 weeks. 3. You may resume driving when you are off narcotics and are safe to react in a car. 4. Take ibuprofen every 8 hours for discomfort. If this does not relieve discomfort, you may take the as needed Percocet. A. Take narcotics as directed. B. Do not take more narcotics then directed and do not share your narcotics with any other person. C. Do not drink alcohol while on narcotics. D. Eat something prior to taking narcotics and you may also take the Zofran if it upsets your stomach. 5. Take stool softeners (Colace) wice daily everyday. Take Miralax daily if your stool in the colostomy is firm. Take both daily while taking narcotics. You may hold for loose stools. 6. Report any fevers greater than 100.5F, increase abdominal discomfort, drainage that looks like pus, increased redness or pain at the surgical site, or any vomiting. 7. Report any pain in the calves, shortness of breath, or rapid heartbeat. 8. Follow-up in the office as directed. 9. If you were prescribed antibiotics, do not stop them without talking to your provider. 10. Follow the new colostomy diet. This will help to reduce gas and help prevent constipation or blockage of the ostomy. Referrals: Felipe Vega MD [Partnered Physician] - 06/10/19 1:35 pm Maribel Pena CNP [Advanced Practice Nurse] - 05/03/19 10:30 am Radha Riojas MD [Non-Partnered Physician] - (please make appointment for patient in 1 week for hospital f/u w/ her PCP, Dr. Radha Riojas) Prescriptions: Docusate Sodium [Colace] 100 mg PO BID PRN #60 capsule PRN Reason: Constipation Ibuprofen 800 mg PO Q8H PRN #42 tablet PRN Reason: Mild Pain Polyethylene Glycol 3350 [MiraLAX Powder Bulk 17.9 Oz] 1 scoop PO DAILY 30 Days #510 gm OxyCODONE/APAP 5/325 [Percocet 5/325 MG] 1 each PO Q6HR PRN 7 Days #28 tablet PRN Reason: Pain Ondansetron ODT [Zofran ODT] 4 mg SL Q4HR PRN #30 tab.rapdis PRN Reason: Nausea <Shnae,Refugio T - Last Filed: 04/17/19 12:07> Date of Encounter: 04/17/19 Objective Vital Signs - Last 8 Hours Temp Pulse Resp BP Pulse Ox 04/17/19 07:00 98.6 F 92 18 183/84 97 Intake and Output 04/16/19 04/17/19 04/17/19 23:59 07:59 15:59 Intake Total 170 / 2670 200 / 210 10 / 210 Output Total 0 / 100 Balance 170 / 2570 200 / 210 10 / 210 Intake: IV Fluids 10 1230 10 / 10 Mefoxin 1,000 MG In Water for 10 inj. (sterile) 10 ML @ 300 mls/ hr IVP Q8H [facility] Rx#:[id number] Oral 160 / 1440 200 / 200 Output: Urine 0 / 0 Other: Meal Dinner Breakfast Percent of Meal Consumed 50% 10% # Voids 1 1 - Labs 04/15/19 04:05 04/15/19 04:05 - Attending Attestation I examined this patient and my medical decision-making was reviewed with the Resident Physician. I agree with the documented findings, disposition and treatment plan as described except to the extent set forth below. The patient is seen and evaluated on morning rounds with the acute care surgery team. She continues to improve. She should be ready for discharge this afternoon or tomorrow morning. I did see some stool in her colostomy bag this morning on rounds. Her abdomen is soft. Her systolic blood pressure is 200. We had a discussion with her primary care team who recommended starting lisinopril. Continue ostomy training today plan discharge tomorrow. Advance to regular diet Refugio Lynn MD FACS
[2019-04-18] MEDS: cefOXitin 1,000 MG in Water for inj. (sterile) 20 ML 10 ML IVP SCH (03:23)
[2019-04-18] MEDS: Pantoprazole 40 MG VIAL IVP SCH (05:18)
[2019-04-18] MEDS: *HR* Heparin 5,000 UNIT/ML VIAL SQ SCH (05:18)
[2019-04-18] MEDS: *HR* OxyCODONE/APAP 5/325 TABLET PO PRN (05:22)
[2019-04-18 06:22] VITALS: BP 132/72
--- NOTE | 2019-04-18 07:48 | Discharge Summary ---
Orders not resulted at time of discharge: Pending orders 04/13/19 23:30 Surgical Pathology [PTH] Routine Date of Encounter: 04/18/19 Time of Encounter: 07:30 - Discharge Diagnosis (1) Status post Gloria's procedure Priority: Primary Status: Acute (2) Rectal prolapse Priority: Primary Status: Acute (3) Hypertension Priority: Secondary Status: Acute Qualifiers: Hypertension type: essential hypertension Qualified Code(s): I10 - Essential (primary) hypertension General Surgery Exam Initial Vital Signs Temp Pulse Resp BP Pulse Ox 98.1 F 90 15 193/80 98 04/13/19 19:10 04/13/19 19:10 04/13/19 19:10 04/13/19 19:10 04/13/19 19:10 - General physical appearance well nourished, no distress - Eyes PERRL, normal ocular movement - ENT normal mucosa, no congestion - Neck trachea midline, no lymphadectomy - Respiratory normal respiratory effort, clear to auscultation - Cardiovascular Cardiovascular exam: Present: RRR - Abdomen Abdomen general surgery: Present: bowel sounds present (Colostomy inplace and functioning well), soft - Incision Incision: Present: clean and dry, intact - Genitourinary Present: normal external genitalia - Neurologic Present: CN 2-12 grossly intact, normal coordination - Musculoskeletal Present: normal posture - Psychiatric Psychiatric general surgery: Present: A&Ox3, appropriate - Hospital Course Hospital course: Ms. Dial is a 64 year old female - Time Spent with Patient Total time spent providing and/or coordinating discharge services: - Discharge Medications Prescriptions: New Docusate Sodium [Colace] 100 mg PO BID PRN #60 capsule PRN Reason: Constipation Ibuprofen 800 mg PO Q8H PRN #42 tablet PRN Reason: Mild Pain Polyethylene Glycol 3350 [MiraLAX Powder Bulk 17.9 Oz] 1 scoop PO DAILY 30 Days #510 gm OxyCODONE/APAP 5/325 [Percocet 5/325 MG] 1 each PO Q6HR PRN 7 Days #28 tablet PRN Reason: Pain Ondansetron ODT [Zofran ODT] 4 mg SL Q4HR PRN #30 tab.rapdis PRN Reason: Nausea Continued Polyethylene Glycol 3350 [MiraLAX] 17 gm PO QPM Ergocalciferol (VITAMIN D2) [Vitamin D2] 50,000 unit PO LITTLEJOHN Discontinued Docusate [Colace] 200 mg PO QAM Home Medications: Polyethylene Glycol 3350 [MiraLAX] 17 gm PO QPM 04/14/19 [History] Ergocalciferol (VITAMIN D2) [Vitamin D2] 50,000 unit PO LITTLEJOHN 04/15/19 [History] Docusate Sodium [Colace] 100 mg PO BID PRN #60 capsule 04/16/19 [Rx] Ibuprofen 800 mg PO Q8H PRN #42 tablet 04/16/19 [Rx] Ondansetron ODT [Zofran ODT] 4 mg SL Q4HR PRN #30 tab.rapdis 04/16/19 [Rx] OxyCODONE/APAP 5/325 [Percocet 5/325 MG] 1 each PO Q6HR PRN 7 Days #28 tablet 04/16/19 [Rx] Polyethylene Glycol 3350 [MiraLAX Powder Bulk 17.9 Oz] 1 scoop PO DAILY 30 Days #510 gm 04/16/19 [Rx] Allergies/Adverse Reactions: Allergy/AdvReac Type Severity Reaction Status Date / Time No Known Allergies Allergy Verified 04/13/19 19:28 Date of admission: 04/13/19 19:48 Primary care physician: PCP NONE Consults: 04/13/19 20:14 Consult to Statistical Programmer Analyst [CONS] Routine Reason for SW Consult: Pt requesting information on living will, power of title attorney for health care 04/14/19 11:04 Consult to Wound Care [CONS] Routine Reason for Consult: colostomy education Call Completed: No 04/15/19 06:30 Consult to Physical Therapy [CONS] Routine Comment: Evaluate, develop and implement POC Reason for Consult: post operative therapy Does patient have active BEDREST order?: No Is patient medically & hemodynamically stable?: Yes 04/15/19 13:53 Consult to Statistical Programmer Analyst [CONS] Routine Reason for SW Consult: HHC for new ostomy, PT/OT pending eval, wound care consult order placed for ostomy education and rx. 04/16/19 08:48 Consult to Nutrition [CONS] Routine Comment: New colostomy diet Consulting Provider: NUTRITION Reason for Dietary Consult: Diet Education - Patient Status Disposition: Home, Self-Care Condition: Good Functional capacity at discharge: independent ambulation - Discharge Instructions Instructions: Colostomy Care (DC), Colectomy (DC), Colostomy Creation (DC) Follow Up With: Felipe Vega MD [Partnered Physician] - 06/10/19 1:35 pm Maribel Pnea CNP [Advanced Practice Nurse] - 05/03/19 10:30 am Radha Riojas MD [Non-Partnered Physician] - (please make appointment for patient in 1 week for hospital f/u w/ her PCP, Dr. Radha Riojas) Additional Instructions: General Surgical Discharge Instructions 1. No pushing, pulling, or lifting greater than 15 lbs for 6 weeks. 2. You may shower beginning today, but no tub baths, soaking, or swimming for 2 weeks. 3. You may resume driving when you are off narcotics and are safe to react in a car. 4. Take ibuprofen every 8 hours for discomfort. If this does not relieve discomfort, you may take the as needed Percocet. A. Take narcotics as directed. B. Do not take more narcotics then directed and do not share your narcotics with any other person. C. Do not drink alcohol while on narcotics. D. Eat something prior to taking narcotics and you may also take the Zofran if it upsets your stomach. 5. Take stool softeners (Colace) wice daily everyday. Take Miralax daily if your stool in the colostomy is firm. Take both daily while taking narcotics. You may hold for loose stools. 6. Report any fevers greater than 100.5F, increase abdominal discomfort, drainage that looks like pus, increased redness or pain at the surgical site, or any vomiting. 7. Report any pain in the calves, shortness of breath, or rapid heartbeat. 8. Follow-up in the office as directed. 9. If you were prescribed antibiotics, do not stop them without talking to your provider. 10. Follow the new colostomy diet. This will help to reduce gas and help prevent constipation or blockage of the ostomy.
== END 2019-04-18 11:51 | disposition home or self-care (01) | DRG 231 ==
LOC: 3ANU
PROVIDERS: ADMIT Surgery; ATTEND Surgery

== ENCOUNTER 2019-07-09 09:06 | Inpatient (IN) ==
[2019-07-09] MEDS ORDERED: cefOXitin 2,000 MG in Water for inj. (sterile) 20 ML IVP ONE (09:32)
[2019-07-09] MEDS ORDERED: Acetaminophen IV 1,000 MG/100 ML INFUS..BTL IVPB ONE (09:34)
[2019-07-09] MEDS ORDERED: *HR* Promethazine 25 MG/ML VIAL IVP PRN (09:34)
[2019-07-09] MEDS ORDERED: Ringers Solution, Lactated 1,000 ML IVC SCH ×2 (09:45)
[2019-07-09] MEDS ORDERED: Ondansetron 4 MG/2 ML VIAL ONE (12:33)
[2019-07-09] MEDS ORDERED: Neostigmine Methylsulfate 3 MG/3 ML SYRINGE ONE (12:33)
[2019-07-09] MEDS ORDERED: Lidocaine -MPF 2% 2 ML VIAL ONE (12:33)
[2019-07-09] MEDS ORDERED: *HR* Propofol 200 MG/20 ML VIAL IVP ONE (12:33)
[2019-07-09] MEDS ORDERED: *HR* FentaNYL (PF) 100 MCG/2 ML VIAL ONE (12:33)
[2019-07-09] MEDS ORDERED: *HR* Rocuronium Bromide 50 MG/5 ML VIAL ONE ×2 (12:33→17:43)
[2019-07-09] MEDS ORDERED: *HR* Midazolam HCl 2 MG/2 ML VIAL ONE (12:33)
[2019-07-09] MEDS ORDERED: Dexamethasone 4 MG/ML VIAL ONE (12:33)
[2019-07-09] MEDS ORDERED: Lidocaine HCL 4 ML Topical Solution (Laryng-O-Jet Kit Sterile Pak) TP ONE (13:17)
[2019-07-09] MEDS ORDERED: *HR* HYDROMORPHONE 2 MG/ML VIAL ONE (14:36)
[2019-07-09] MEDS: *HR* HYDROmorphone (PF) 1 MG/ML SYRINGE IVP PRN ×4 (19:27→20:05)
[2019-07-09] MEDS ORDERED: Morphine Sulfate Oral CONC 10 MG/0.5 ML ORAL.SYG SL PRN (21:09)
[2019-07-09] MEDS ORDERED: Naloxone 0.4 MG/ML INJ IVP PRN (21:09)
[2019-07-09] MEDS ORDERED: Ondansetron 4 MG/2 ML VIAL IVP PRN (21:09)
[2019-07-09] MEDS ORDERED: *HR* OxyCODONE Immed Rel 5 MG TABLET PO PRN (21:09)
[2019-07-09] MEDS: 0.9 % Sodium Chloride 1,000 ML IVC SCH (21:32)
[2019-07-09] MEDS: cefOXitin 1,000 MG in Water for inj. (sterile) 10 ML IVP SCH (21:32)
[2019-07-09] MEDS: Acetaminophen IV 1,000 MG/100 ML INFUS..BTL IVPB SCH (23:51)
[2019-07-10 04:49] LABS: Basophils % 0.1 %; Hematocrit 36.8 % (35.3-44.9); Immature Granulocytes % 0.3 % (0-4); Lymphocytes # 0.7 K/mcL (0.6-4.6); Lymphocytes % 5.2 %; Mean Corpuscular HGB Conc 32.6 g/dL (31.6-35.5); Mean Corpuscular Hemoglobin 30.4 pg (28.0-33.3); Mean Corpuscular Volume 93.2 fL (83.0-100.0); Mean Platelet Volume 9.1 fL (9.4-12.4); Monocytes # 0.6 K/mcL (0.0-1.3); Neutrophils # 11.3 K/mcL (1.6-8.9); Platelet Count 263 K/mcL (140-400); Red Blood Count 3.95 M/mcL (3.82-4.97); Red Cell Distribution Width 12.2 % (11.5-14.5); Segmented Neutrophils % 89.4 %; White Blood Count 12.6 K/mcL (4.3-11.1)
[2019-07-10 05:11] LABS: BUN/Creatinine Ratio 15 (6-26); Blood Urea Nitrogen 12 mg/dL (8-23); Calcium 8.4 mg/dL (8.6-10.3); Carbon Dioxide 25 mEq/L (23-29); Chloride 105 mEq/L (98-107); Glucose 113 mg/dL (70-105); Osmolality,Calculated 287 (280-300); Potassium 4.3 mEq/L (3.5-5.1); Sodium 138 mEq/L (136-145); eGFR For African Americans > 60 (> 60); eGFR For Non-African Americans > 60 (> 60)
[2019-07-10] MEDS: cefOXitin 1,000 MG in Water for inj. (sterile) 10 ML IVP SCH ×2 (05:34→13:27)
[2019-07-10] MEDS: Acetaminophen IV 1,000 MG/100 ML INFUS..BTL IVPB SCH ×3 (06:03→18:16)
[2019-07-10] MEDS: Pantoprazole 40 MG VIAL IVP SCH (09:08)
[2019-07-10] MEDS: *HR* Heparin 5,000 UNIT/ML VIAL SQ SCH (18:16)
[2019-07-10] MEDS: 0.9 % Sodium Chloride 1,000 ML IVC SCH (18:18)
[2019-07-11] MEDS: Acetaminophen IV 1,000 MG/100 ML INFUS..BTL IVPB SCH ×3 (00:09→12:00)
[2019-07-11] MEDS: 0.9 % Sodium Chloride 1,000 ML IVC SCH (00:10)
[2019-07-11] MEDS: *HR* Heparin 5,000 UNIT/ML VIAL SQ SCH (05:35)
[2019-07-11] MEDS: Pantoprazole 40 MG VIAL IVP SCH (07:24)
[2019-07-11 12:13] VITALS: BP 135/83
== END 2019-07-11 15:04 | disposition home or self-care (01) | DRG 231 ==
LOC: SAMDAY 09:06 → 3ANU 20:35
PROVIDERS: ADMIT Surgery; ATTEND Surgery